=== PATIENT | female | born 1970 | race Caucasian/White ===

== ENCOUNTER 2020-12-15 10:09 | Day surgery (SDC) | payer OTHER, SELFPAY ==
[~2020-12-15] VITALS: Ht 157.5 cm; Wt 67.1 kg
[2020-12-15] MEDS ORDERED: LIDOCAINE 2% 100 MG/5 ML UJET TP ONE (13:52)
[2020-12-15] MEDS ORDERED: MIDAZOLAM 5 MG/5 ML VIAL ONE (13:52)
[2020-12-15] MEDS ORDERED: fentaNYL citrate 0.05 MG/ML VIAL ONE (13:52)
[2020-12-15] MEDS ORDERED: MIDAZOLAM 2 MG/2 ML VIAL IV ONE (14:40)
[2020-12-15] MEDS ORDERED: fentaNYL citrate 0.05 MG/ML VIAL IVP ONE (14:40)
== END 2020-12-15 17:04 | disposition home or self-care (01) ==
LOC: MDS 10:09 → MFCC 10:10 → MDS 17:04
PROVIDERS: ATTEND Internal Medicine Gastroenterology
DX: Z12.11 Encounter for screening for malignant neoplasm of colon (principal); K57.30 Diverticulosis of large intestine without perforation or abscess without bleeding; R10.13 Epigastric pain; R11.2 Nausea with vomiting, unspecified; I10 Essential (primary) hypertension; M19.90 Unspecified osteoarthritis, unspecified site; Z20.822 Contact with and (suspected) exposure to COVID-19; Z79.899 Other long term (current) drug therapy
CPT/HCPCS: 43235; 45378; J2250; J3010; U0003